=== PATIENT | female | born 1965 | race Caucasian/White ===

== ENCOUNTER 2017-02-16 12:22 | Emergency (ER) ==
[2017-02-16 12:52] VITALS: BP 127/91
--- NOTE | 2017-02-16 13:28 | PROVIDER DOCUMENTATION ---
HPI-General Adult - General Source: patient - History of Present Illness -Gen Adult Nature of Presenting Problems: Reports coughing x 3 days with green production. States having chest wall pain from coughing. Reports was taken off her anxiety medication by pcp and states is having sob from anxiety. Pt reports last night vomited due to all the sinus drainage. Denies n,v,f. Reports ear pain. Quality of Pain: reports: aching Severity: reports: moderate Onset/Duration: reports: 3 days ago Timing: reports: still present Similar Symptoms Previously?: No Recently seen or treated by another doctor?: No <Nilam Black - Last Filed: 02/16/17 14:19> <Alea Wiseman - Last Filed: 02/16/17 14:26> - General Chief Complaint: Cold Symptoms Stated Complaint: COLD SX Time Seen by Provider: 02/16/17 12:59 Allergies/Adverse Reactions: Patient Allergies Allergy/AdvReac Type Severity Reaction Status Date / Time No Known Allergies Allergy Verified 02/16/17 12:52 Home Medications: Home Medication List Medication Instructions Recorded Confirmed Last Taken Type Albuterol Sulfate Inhaler 2 puff INH [id number] #1 inhaler 02/16/17 Unknown Rx [Ventolin Hfa] Azithromycin [Zithromax Z-Florin] 250 mg PO DIRECTED #1 pkg 02/16/17 Unknown Rx Benzonatate [Tessalon Perle] 100 mg PO TID #30 capsule 02/16/17 Unknown Rx Hydrocodone/Acetaminophen [[place] 1 tab PO TID 02/16/17 02/16/17 Unknown History 5-325 Tablet] Sertraline [Zoloft] 50 mg PO DAILY 02/16/17 02/16/17 02/15/17 History Review of Systems - Adult - REVIEW OF SYSTEMS - ADULT Constitutional: denies: chills, fever, fatique Eyes: reports: no symptoms reported Ears, Nose, Mouth & Throat: reports: ear pain, sinus problem. denies: throat pain Cardiovascular: denies: chest pain, irregular heart rate, orthopnea, syncope Respiratory: reports: cough. denies: pleurisy, shortness of breath, wheezing Gastrointestinal: reports: no symptoms reported Genitourinary: reports: no symptoms reported Musculoskeletal: reports: see HPI. denies: joint pain, joint swelling, muscle aches Integumentary: reports: no symptoms reported Neurological: reports: no symptoms reported Psychiatric: reports: anxiety. denies: anti-depressant use, alcohol/drug dependence, depression, emotional problems Endocrine: reports: no symptoms reported Hematologic/Lymphatic: reports: no symptoms reported Allergic/Immunologic: reports: no symptoms reported All Other Systems: Reviewed and Negative <Nilam Black - Last Filed: 02/16/17 14:19> Past History - Adult - PAST MEDICAL HISTORY-ADULT Review of Records: reports: Nursing Assessment Review Major Childhood Illnesses: reports: denies history Cardiovascular: reports: HTN Musculoskeletal: reports: chronic pain (back) Psychiatric: reports: anxiety, depression - IMMUNIZATION STATUS Childhood Immunizations: See Nurse Assessment Flu Vaccine: See Nurse Assessment - SOCIAL HISTORY Smoking: cigarettes, greater than 1 pack/day Provider spent 3-5 mins advising pt. on dangers of tobacco.: Discussed manners to quit use, and f/u contacts for add'l counseling. Substance Use: alcohol <WayneNilam - Last Filed: 02/16/17 14:19> Physical Exam-General - PHYSICAL EXAM-ADULT Initial Vital Signs Reviewed: Yes - CONSTITUTIONAL General Appearance: appears well, alert, no apparent distress - EYES Eyes: PERRL/EOMI, pink conjunctivae - HEAD, EARS, NOSE, MOUTH & THROAT HENMT: normocephalic/atraumatic, moist mucous membranes, normal ENT inspection, TMs normal, pharynx normal - RESPIRATORY Respiratory: lungs clear, normal breath sounds. negative: wheezing - CARDIOVASCULAR Cardiovascular: normal peripheral pulses, regular rate, rhythm - GASTROINTESTINAL (ABDOMEN) Abdominal Exam: normal bowel sounds, non tender, soft - MUSCULOSKELETAL Extremity: normal range of motion, normal capillary refill - SKIN Integumentary: normal color, normal turgor, warm/dry <Alea Wiseman - Last Filed: 02/16/17 14:26> Progress - PLAN OF CARE/RESULTS Progress/Plan/Lab Results: Orders Category Date Time Status INFLUENZA SCREEN PL Stat Lab 02/16/17 13:10 Received strep [DIRECT STREP PL] Stat Lab 02/16/17 13:10 Received Vital Signs - 24 hr 02/16/17 12:49 Temperature 97 F L Pulse Rate 80 Respiratory 18 Rate Blood Pressure 127/91 O2 Sat by Pulse 95 Oximetry - XRAY 1 XRAY: Bilateral XRAY Study: Chest Impression: Normal XRAY Interpretation: nad <BlackNilam - Last Filed: 02/16/17 14:19> - PLAN OF CARE/RESULTS Progress/Plan/Lab Results: Discussed care, diagnsois and need for follow-up, patient verbalized understanding <BowenAlea Thomas - Last Filed: 02/16/17 14:26> Departure <Nilam Black - Last Filed: 02/16/17 14:19> - Departure Time of Disposition Order: 14:20 Certified Medical Emergency: Emergent <Dallam,Alea Martha - Last Filed: 02/16/17 14:26> - Departure DIAGNOSIS: Cough Upper respiratory infection Qualifiers: URI type: unspecified URI Qualified Code(s): J06.9 - Acute upper respiratory infection, unspecified Disposition: HOME 01 Condition: Stable Additional Instructions: ED Follow Up Instructions: You have been treated by a care provider in the Emergency Department. These instructions are being provided to you so you can have an understanding of how to care for yourself upon discharge. Upon discharge from the Emergency Department, you are responsible for making arrangements for follow-up care by a physician of your choice. Take all prescribed medications as directed. Return to the Emergency Department immediately for any new or worsening symptoms. You may call the Physician Referral phone number at [phone] to obtain a list of Physicians who are taking new patients. Prescriptions: Benzonatate [Tessalon Perle] 100 mg PO TID #30 capsule Albuterol Sulfate Inhaler [Ventolin Hfa] 2 puff INH [id number] #1 inhaler Azithromycin [Zithromax Z-Florin] 250 mg PO DIRECTED #1 pkg Referrals: Tucker Sanchez MD [Primary Care Provider] - Attestation - Scribe Verification/Attestation Scribe:: Nilam Black Acting as Scribe for:: Alea Wiseman Scribe documention review:: This chart was documented by a scribe and accurately reflects the service the provider performed and the decisions made by the provider. - Physician/ SERENA Attestation Patient care was provided by Advanced Practice Provider:: Yes Advanced Practice Provider:: Alea Wiseman Advanced Practice Provider documentation review:: The Mid-level provider documentation, treatment plan and medical decision making was reviewed by the physician who agrees with all treatment and medical decision making by the MLP. <Nilam Black - Last Filed: 02/16/17 14:19> - Physician/ SERENA Attestation Patient care was provided by Advanced Practice Provider:: Yes Advanced Practice Provider:: Alea Wiseman Advanced Practice Provider documentation review:: The Mid-level provider documentation, treatment plan and medical decision making was reviewed by the physician who agrees with all treatment and medical decision making by the MLP. <Alea Wiseman - Last Filed: 02/16/17 14:26> Physician Attestation
--- NOTE | 2017-02-16 14:13 | Diag Imaging Result Document ---
PROCEDURE NAME: CHEST-2 VIEWS - 02/16/2017 FRONTAL AND LATERAL CHEST, TWO VIEWS: FINDINGS: The lungs are well expanded. The heart is not enlarged. The vessels are not distended. There are no infiltrates. No pleural effusions. IMPRESSION: No pneumonia.
[2017-02-16] MEDS ORDERED: DECADRON IM ONE (14:19)
== END 2017-02-16 14:39 | disposition home or self-care (01) ==
LOC: P.ED 12:22
DX: J06.9 Acute upper respiratory infection, unspecified (principal); R05 Cough; I10 Essential (primary) hypertension; M54.9 Dorsalgia, unspecified; G89.29 Other chronic pain; F32.9 Major depressive disorder, single episode, unspecified; F17.210 Nicotine dependence, cigarettes, uncomplicated; Z71.6 Tobacco abuse counseling; H92.09 Otalgia, unspecified ear; F41.9 Anxiety disorder, unspecified; Z79.899 Other long term (current) drug therapy
CPT/HCPCS: 71020; 87081; 87430; 87804; 96372